=== PATIENT | male | born 1970 | race Caucasian/White ===

== ENCOUNTER 2018-08-18 13:43 | Emergency (ER) | payer SELFPAY ==
[~2018-08-18] VITALS: Ht 167.6 cm; Wt 72.7 kg
[2018-08-18 13:56] VITALS: Ht 167.6 cm; Wt 72.7 kg
[2018-08-18] MEDS ORDERED: morphine 2 MG INJ IV STA (15:58)
[2018-08-18] MEDS ORDERED: AMPICILLIN/SULB 1.5GM/NS (PMX) 50 ML IVPB ONE (17:00)
[2018-08-18] MEDS ORDERED: SOD CHLORIDE 0.9% 1,000 ML IV ONE (17:00)
--- NOTE | 2018-08-18 17:05 | ERD ---
ER Documentation Chief Complaint Chief Complaint [id number] dental problem x2wks, facial swelling and worsening pain today HPI 48-year-old male with no reported past medical or surgical history who presents with 2-week complaint of facial pain and swelling. Reporting severe pain to left side of mouth with intermittent spitting up of blood. States she had a cracked tooth about 2 months ago which has not bothered him until recently when he noticed severe swelling and pain on the left side of his face and worsening tooth and jaw pain. He otherwise denies dysphagia,chest pain, shortness of breath, dyspnea, nausea vomiting, abdominal pain, urinary symptoms. Time of evaluation patient with significant edema to the left cheek and face. Patient a bit lethargic but arousable. He denies illicit drug or alcohol use. Is alert and oriented x3. No tremors noted. ROS All systems reviewed and are negative except as per history of present illness. Medications Home Meds Active Scripts Ibuprofen* (Motrin*) 800 Mg Tab, 800 MG PO Q6H PRN for PAIN AND OR ELEVATED TEMP, #30 TAB Prov:MARY CARMEN MONREAL PA-C 08/18/18 Amoxicillin/Potassium Clav (Amox-Clav 875-125 mg Tablet) 875-125 mg Tab, 1 TAB PO BID for 10 Days, #20 TAB Prov:MARY CARMEN MONREAL PA-C 08/18/18 Allergies Allergies: Coded Allergies: No Known Allergy (Unverified , 08/18/18) PMhx/Soc Medical and Surgical Hx: pt denies Medical Hx, pt denies Surgical Hx Hx Alcohol Use: No Hx Substance Use: No Hx Tobacco Use: No Smoking Status: Never smoker Physical Exam Vitals Vital Signs Date Temp Pulse Resp B/P (MAP) Pulse Ox O2 O2 Flow FiO2 Time Delivery Rate 08/18/18 100.4 99 23 135/74 96 Room Air 16:30 (94) 08/18/18 98.4 107 22 133/86 98 13:56 (102) Physical Exam I have reviewed the triage vital signs. Const: Well nourished, well developed, appears stated age Eyes: PERRL, no conjunctival injection HENT: NCAT, Neck supple without meningismus, significant swelling to L face extending from jaw to eye, scant blood pooling left side of mouth CV: RRR, Warm, well-perfused extremities RESP: CTAB, Unlabored respiratory effort GI: soft, non-tender, non-distended, no masses MSK: No gross deformities appreciated Skin: Warm, dry. No rashes Neuro: grossly non focal Psych: Appropriate mood and affect. Result Diagram: 08/18/18 1608 08/18/18 1608 Results 24 hrs Laboratory Tests Test 08/18/18 16:08 08/18/18 16:41 08/18/18 17:00 White Blood Count 20.3 10^3/ul Red Blood Count 4.63 10^6/ul Hemoglobin 14.4 g/dl Hematocrit 42.0 % Mean Corpuscular Volume 90.7 fl Mean Corpuscular Hemoglobin 31.1 pg Mean Corpuscular Hemoglobin Concent 34.3 g/dl Red Cell Distribution Width 13.4 % Platelet Count 310 10^3/UL Mean Platelet Volume 9.3 fl Immature Granulocytes % 0.400 % Neutrophils % 71.3 % Lymphocytes % 15.4 % Monocytes % 10.5 % Eosinophils % 2.2 % Basophils % 0.2 % Nucleated Red Blood Cells % 0.0 /100WBC Immature Granulocytes # 0.090 10^3/ul Neutrophils # 14.5 10^3/ul Lymphocytes # 3.1 10^3/ul Monocytes # 2.1 10^3/ul Eosinophils # 0.4 10^3/ul Basophils # 0.1 10^3/ul Nucleated Red Blood Cells # 0.0 10^3/ul Sodium Level 135 mmol/L Potassium Level 4.3 mmol/L Chloride Level 98 mmol/L Carbon Dioxide Level 26 mmol/L Anion Gap 11 Blood Urea Nitrogen 7 mg/dl Creatinine 0.68 mg/dl Est Glomerular Filtrat Rate mL/min > 60 mL/min Glucose Level 121 mg/dl Calcium Level 9.3 mg/dl Total Bilirubin 1.2 mg/dl Direct Bilirubin 0.00 mg/dl Indirect Bilirubin 1.2 mg/dl Aspartate Amino Transf (AST/SGOT) 56 IU/L Alanine Aminotransferase (ALT/SGPT) 80 IU/L Alkaline Phosphatase 101 IU/L Total Protein 7.9 g/dl Albumin 4.2 g/dl Globulin 3.70 g/dl Albumin/Globulin Ratio 1.13 POC Venous Lactate 1.1 mmol/L Lactic Acid Level 1.4 mmol/L Current Medications Medications Dose Sig/Ligia Start Time Status Last (Trade) Ordered Route PRN Stop Time Admin Dose Reason Admin Morphine 2 mg ONCE STAT 08/18/18 DC 08/18/18 Sulfate IV 15:58 08/18/18 16:15 (morphine) 16:02 Sodium 1,000 ml @ Q1H ONCE 08/18/18 DC 08/18/18 Chloride 1,000 mls/hr IV 17:00 08/18/18 16:45 17:59 Ampicillin 50 ml @ ONCE ONCE 08/18/18 DC Sodium/ 100 mls/hr IVPB 17:00 08/18/18 Sulbactam 17:19 Sodium Ampicillin 100 ml @ ONCE ONCE 08/18/18 DC 08/18/18 Sodium/ 100 mls/hr IVPB 17:30 08/18/18 17:52 Sulbactam 18:29 Sodium Procedures/MDM 48-year-old male presents with L facial/dental pain and swelling. Case discussed with attending Dr López who advises discharge with 24-hour return for reevaluation tomorrow. ED course: IVF bolus 1L pain control CBC with WBC 20k, LA 1.3 Plan: 24 hour return for reevaluation per attending recommendations Augmentin BID x 7 days Pain control with ibuprofen, avoid narcotics given patient initial presentation DISPOSITION PLAN: We discussed return to ED for reevaluation in 24 hours. Patient counseled regarding my diagnostic impression and care plan. Prior to discharge all questions answered. Pt agrees with treatment plan and understands strict return precautions. Precautionary instructions provided including instructions to return to the ER if not improving or for any worsening or changing symptoms or concerns. Departure Condition: Stable MARY CARMEN MONREAL PA-C Aug 18, 2018 17:02
[2018-08-18] MEDS ORDERED: AMPICILLIN/SULB 3 GM/NS (PMX) 100 ML IVPB ONE (17:30)
[2018-08-18] MEDS ORDERED: IBUP800T48 PO (19:09)
[2018-08-18] MEDS ORDERED: AMOX1TAB10 PO (19:09)
[2018-08-18 19:50] VITALS: BP 116/84; PULSE 100; RESP 18
== END 2018-08-18 20:06 | disposition home or self-care (01) ==
LOC: FTE 13:43
DX: K08.89 Other specified disorders of teeth and supporting structures (principal)
CPT/HCPCS: 36415; 80053; 83605; 85025; 87040; 96361; 96365; 96375; 99284; J0295; J2270; J7030